=== PATIENT | male | born 1955 | race Caucasian/White ===

== ENCOUNTER → 2016-09-23 | Outpatient (CLI) | payer BC ==
[~2016-09-23] MED LIST: ADVIN10/60 INH
--- NOTE | 2016-09-23 11:59 | DIAGNOSTIC IMAGING REPORT ---
LEFT SHOULDER MIN 2 VIEWS CLINICAL HISTORY: LEFT SHOULDER PAIN pain COMPARISON: None. DISCUSSION: Apparent prior distal left acromioplasty. No acute bony abnormality. No abnormal soft tissue calcifications. There is no evidence for soft tissue swelling. IMPRESSION: Postoperative changes distal clavicle. No acute process. Electronically signed by: Conrado Pearson M.D. 09/23/2016 11:57 AM Dictated Date/Time: 09/23/2016 11:57 AM
== END | disposition home or self-care (01) ==
LOC: C.RDSM 14:19
PROVIDERS: ATTEND Physician Assistant
DX: M25.512 Pain in left shoulder (principal); Z98.890 Other specified postprocedural states

== ENCOUNTER → 2017-06-29 | Outpatient (CLI) | payer BC ==
--- NOTE | 2017-06-29 09:08 | DIAGNOSTIC IMAGING REPORT ---
L LOWER EXT JOINT WITHOUT CLINICAL HISTORY: 61 years-old Male with L KNEE PAIN. Acute left knee pain status post trauma. Pain is most pronounced medially with associated swelling. COMPARISON: None available TECHNIQUE: Multiplanar, multisequence MRI of the left knee was performed without intravenous contrast. FINDINGS: MENISCI: Multidirectional signal involves the body, posterior junction and posterior horn medial meniscus with dominant horizontal undersurface tear component extending to the inferior articular surface nicely seen on the sagittal PD images. There is also nicely seen on images 15 and 16 of series 8. There is mild medial extrusion of the medial meniscus into the adjacent meniscal gutter. No definite displaced fragment identified. There is probable extension of the tear into the posterior horn meniscal root as seen on image 11 of series 5. The lateral meniscus appears sharp in contour and is intact. CRUCIATE LIGAMENTS: The anterior and posterior cruciate ligaments are normal in signal, morphology and course. Minimal mucoid degeneration involves the proximal femoral fibers of the ACL. COLLATERAL LIGAMENTS: The popliteus tendon, biceps femoris tendon, fibular collateral ligament and iliotibial band are intact. There is extensive soft tissue edema about the medial knee both deep and superficial to the MCL. There is a complete tear of the superficial deep and superficial fibers of the MCL from its femoral attachment site with 7 mm retraction, image 17 series 4 and image 16 series 8. EXTENSOR MECHANISM: The quadriceps and patellar tendons are intact. The medial and lateral patellar retinacula are intact. KNEE JOINT: Small to moderate joint effusion. Mild chondromalacia involves the patellofemoral joint with moderate chondromalacia of the mid weightbearing portion of the lateral femoral condyle and posterior weightbearing portion of the medial femoral condyle with areas of mild subchondral cystic change/edema. Mild subchondral cystic change/edema is also seen involving the lateral tibia at the tibiofibular articulation. No intra-articular loose body identified. BONE MARROW: The bone marrow signal is age appropriate. No fracture, or marrow replacing process. SOFT TISSUES: Soft tissue edema as above with mild subcutaneous edema about the medial knee. IMPRESSION: 1. Complete tear of the MCL with minimal retraction of the superficial fibers. Extensive associated edema is noted both superficial and deep to the torn MCL. 2. Complex tear of the medial meniscal body, posterior junction and posterior horn with probable extension into the posterior meniscal root. 3. Tricompartmental chondromalacia as above. 4. No acute fracture identified. 5. Small to moderate joint effusion. The above report was generated using voice recognition software. It may contain grammatical, syntax or spelling errors. Electronically signed by: Herb Oconnor M.D. 06/29/2017 9:06 AM Dictated Date/Time: 06/29/2017 8:51 AM
== END | disposition home or self-care (01) ==
LOC: C.MRI 07:54
PROVIDERS: ATTEND Physician Assistant
DX: S83.412A Sprain of medial collateral ligament of left knee, initial encounter (principal); S83.242A Other tear of medial meniscus, current injury, left knee, initial encounter; X58.XXXA Exposure to other specified factors, initial encounter; M94.262 Chondromalacia, left knee; M25.462 Effusion, left knee

== ENCOUNTER 2021-10-22 10:38 | Inpatient (IN) ==
--- NOTE | 2021-10-22 11:07 | Emergency Department Note ---
Impression & Plan Pneumothorax on right, Multiple rib fractures involving four or more ribs, Syncope, Smokeless tobacco use, Acute chest wall pain ED Provider Note NAME: BECCA GARCIA AGE: 66 SEX: M : 1955 ARRIVES VIA: Walk-In INFORMANT: [Patient][, ] ED PROVIDER(S): [Luis M Cancino MD] Chief Complaint: Chest wall pain, syncope HPI: Patient presented due to concern for right-sided chest wall pain status post fall that occurred 2 days prior was seen in the outpatient setting was told he likely had rib fractures as well as a possible punctured lung. 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 Patient was only out for a brief period of time. Patient states that he probably fell about 5 feet. Patient does not take any blood thinning medications and did not have any pain until yesterday. Patient does describe it as sharp and burning. It is nonradiating located to the right lateral and anterior rib areas. The patient does complain of pain with inspiration is well-developed with palpation and movement. Patient has any fevers or chills. Patient denies any head neck abdominal pelvis or extremity pain. Patient did take 2 Aleve this morning which mildly improved his symptoms. The patient does use chewing tobacco but does not smoke. ROS: See HPI for pertinent positives and negatives. A total of 10 systems were reviewed and otherwise negative. Past medical history: See below Surgical history: See below Social history: See below Physical Exam: GENERAL: NAD, [wearing a mask,] non-toxic. EYE EXAM: Normal conjunctiva. PERRL, no anisocoria and EOM's grossly intact w/o pain. NECK: Supple, no nuchal rigidity, no adenopathy, non-tender. No signs of meningismus. FROM of the neck with good chin to chest and neck extension. No stridor. LUNGS: Clear to auscultation. Normal chest wall mechanics. Chest: Pain to the lower portion of the mid axillary ribs as well as anteriorly without obvious flail chest crepitus or overlying ecchymosis. HEART: NSR, no MRG. ABDOMEN: Abdomen soft, non-tender, normo-active bowel sounds, no masses, no rebound or guarding. BACK: No CVA TTP. SKIN: No rashes and no bruising. UPPER EXTREMITIES: Upper extremities are grossly normal. LOWER EXTREMITIES: Grossly normal, no edema. NEURO EXAM: A&O x3, cranial nerves II-XII grossly intact, normal speech, moves all 4 extremities. Differential diagnoses: Fracture, sprain, strain, hemothorax, pneumothorax, pulmonary contusion dehydration, electrolyte abnormality among others were considered. Course: Patient was seen and evaluated the bedside. Full history physical exam was performed. EKG interpreted by me Normal sinus rhythm, rate of 61, normal intervals, normal axis, no obvious ST elevations. Imaging Studies: See Below Cardiac monitoring: An order was placed for continuous cardiac monitoring. The monitor shows a rate of 65 with sinus rhythm. MDM: Patient was seen due to concern for some right-sided chest wall pain in the setting of recent syncope and fall of the behavior that occurred 2 days prior. The patient has been seen in the outpatient setting was referred here as they were concerned about his x-rays. Blood work was obtained and the patient did receive 4 morphine and 4 of Zofran and IV fluids. The patient does have 7 through 10 rib fractures with small apical pneumothorax. The patient does not tachypneic nor tachycardic and is not hypoxic. Do not believe the patient requires an acute chest tube at this time. Nonrebreather was ordered. I did briefly discuss the patient's care with Dr. Knox at he stated that he was comfortable with keeping him here at the hospital. I subsequently did speak with Lorna Ryder PA-C and the patient was admitted by Dr. Moctezuma. Past Med/Surg History Medical History Asthma Left acoustic neuroma Thoracic aortic aneurysm Surgical History History of orthopedic surgery Hx of hernia repair Hx of sinus surgery Family History Father Myocardial infarction, Onset Age: 58 Brother Cancer brain cancer Social History Smoking Status: Former smoker Tobacco Type: Smokeless Tobacco (Dip or Chew) Number of Years Since Quit: 30; Hx Alcohol Use: Yes Alcohol type: beer Alcohol Intake Frequency: 4 or More x per/Week Alcohol Intake Frequency Comment: 2-3 a day Hx Substance Use: No Preferred Language: Tuvaluan Communication Ability: Effective marital status: Current Living Situation: Spouse Feels Safe at Home: Yes Allergies Allergies Allergy/AdvReac Type Severity Reaction Status Date / Time Penicillins Allergy Unknown . Verified 08/07/21 15:28 Home Meds Home Medications Medication Instructions Recorded Confirmed fluticasone propionate 110 1 puff inhalation BID 08/07/21 10/22/21 mcg/actuation HFA aerosol inhaler (Flovent HFA) Results & Data (ED) Vital Signs Vital Signs - 24 hr 10/22/21 10:44 10/22/21 11:20 10/22/21 11:24 Temperature 36.8 C Temperature Source Temporal Artery Scan Pulse Rate 70 Pulse Rate [Left Apical] 71 Pulse Rhythm [Left Apical] Regular Pulse Strength [Left Apical] Normal Respiratory Rate 20 16 Respiratory Effort / Characteristics Non-Labored Non-Labored Spontaneous Respiratory Depth Normal Normal Respiratory Pattern Regular Blood Pressure 149/88 H Blood Pressure [Right Arm] 143/88 H Blood Pressure Mean 108 Blood Pressure Mean [Right Arm] 106 Blood Pressure Position Sitting Blood Pressure Position [Right Arm] Pulse Oximetry 98 97 Oxygen Delivery Method Room Air Room Air Room Air Sepsis Recent Fever Within 48 Hours No Sepsis New/Unexplained Change in Mental Status No Sepsis Action Taken by Nursing No Action Required 10/22/21 13:00 10/22/21 16:15 Temperature Temperature Source Pulse Rate Pulse Rate [Left Apical] 60 64 Pulse Rhythm [Left Apical] Regular Pulse Strength [Left Apical] Normal Respiratory Rate 18 20 Respiratory Effort / Characteristics Non-Labored Respiratory Depth Normal Respiratory Pattern Regular Blood Pressure Blood Pressure [Right Arm] 116/83 137/83 Blood Pressure Mean Blood Pressure Mean [Right Arm] 94 101 Blood Pressure Position Blood Pressure Position [Right Arm] Lying Pulse Oximetry 97 94 Oxygen Delivery Method Room Air Room Air Sepsis Recent Fever Within 48 Hours Sepsis New/Unexplained Change in Mental Status Sepsis Action Taken by Halfway Medications Current Medication List: was personally reviewed by me Laboratory Data Attestation: I reviewed the patient's lab results. Result diagrams: 10/22/21 11:17 10/22/21 11:17 Lab Results 10/22/21 10/22/21 10/22/21 Range/Units 11:17 11:17 11:17 WBC 7.50 (4.8-10.8) K/ul RBC 5.00 (4.63-6.08) M/uL Hgb 14.5 (14.0-18.0) g/dl Hct 43.2 (40.1-51.0) % MCV 86.4 (80.0-100.0) fL MCH 29.0 (25.0-34.0) pg MCHC 33.6 (32.0-36.0) g/dL RDW Std Deviation 40.3 (36.4-46.3) fL RDW Coeff of Cherelle 12.9 (11.5-14.5) % Plt Count 166 (130-400) K/uL MPV 10.6 (9.4-12.4) fL Immature Gran % (Auto) 0.4 % Neut % (Auto) 83.0 % Lymph % (Auto) 8.7 % [place] % (Auto) 6.7 % Eos % (Auto) 0.9 % Baso % (Auto) 0.3 % Neut # (Auto) 6.23 (1.4-6.5) K/uL Lymph # (Auto) 0.65 L (1.2-3.4) K/uL [place] # (Auto) 0.50 (0.24-0.82) K/uL Eos # (Auto) 0.07 (0-0.50) K/uL Baso # (Auto) 0.02 (0-0.2) K/uL Immature Gran # (Auto) 0.03 H (0.00-0.02) K/uL Sodium 139 (136-145) mmol/L Potassium 4.4 (3.5-5.1) mmol/L Chloride 105 (98-107) mmol/L Carbon Dioxide 29 (21-32) mmol/L Anion Gap 5 (3-11) BUN 19 (6-23) mg/dl Creatinine 0.80 (0.6-1.4) mg/dl Est Cr Clr Drug Dosing 78.1 ml/min Est GFR ( Amer) 109.4 ml/min Est GFR (Non-Af Amer) 94.4 ml/min BUN/Creatinine Ratio 23.8 H (10-20) Glucose 128 H (70-99(Fasting)) mg/dl Calcium 9.4 (8.5-10.1) mg/dl Total Bilirubin 0.8 (0.2-1.0) mg/dl AST 33 (13-39) U/L ALT 43 (7-52) U/L Alkaline Phosphatase 62 (34-104) U/L Troponin I High Sens (0-20) pg/ml Total Protein 6.7 (6.0-8.3) gm/dl Albumin 4.3 (3.4-5.0) gm/dl Globulin 2.4 L (2.5-4.0) gm/dl Albumin/Globulin Ratio 1.8 (0.9-2) TSH 1.434 (0.300-4.500) uIu/ml SARS-CoV-2, RNA, NAAT (NEGATIVE) 10/22/21 10/22/21 Range/Units 11:17 13:30 WBC (4.8-10.8) K/ul RBC (4.63-6.08) M/uL Hgb (14.0-18.0) g/dl Hct (40.1-51.0) % MCV (80.0-100.0) fL MCH (25.0-34.0) pg MCHC (32.0-36.0) g/dL RDW Std Deviation (36.4-46.3) fL RDW Coeff of Cherelle (11.5-14.5) % Plt Count (130-400) K/uL MPV (9.4-12.4) fL Immature Gran % (Auto) % Neut % (Auto) % Lymph % (Auto) % [place] % (Auto) % Eos % (Auto) % Baso % (Auto) % Neut # (Auto) (1.4-6.5) K/uL Lymph # (Auto) (1.2-3.4) K/uL [place] # (Auto) (0.24-0.82) K/uL Eos # (Auto) (0-0.50) K/uL Baso # (Auto) (0-0.2) K/uL Immature Gran # (Auto) (0.00-0.02) K/uL Sodium (136-145) mmol/L Potassium (3.5-5.1) mmol/L Chloride (98-107) mmol/L Carbon Dioxide (21-32) mmol/L Anion Gap (3-11) BUN (6-23) mg/dl Creatinine (0.6-1.4) mg/dl Est Cr Clr Drug Dosing ml/min Est GFR ( Amer) ml/min Est GFR (Non-Af Amer) ml/min BUN/Creatinine Ratio (10-20) Glucose (70-99(Fasting)) mg/dl Calcium (8.5-10.1) mg/dl Total Bilirubin (0.2-1.0) mg/dl AST (13-39) U/L ALT (7-52) U/L Alkaline Phosphatase (34-104) U/L Troponin I High Sens 4.1 (0-20) pg/ml Total Protein (6.0-8.3) gm/dl Albumin (3.4-5.0) gm/dl Globulin (2.5-4.0) gm/dl Albumin/Globulin Ratio (0.9-2) TSH (0.300-4.500) uIu/ml SARS-CoV-2, RNA, NAAT NEGATIVE (NEGATIVE) Administered Medications Discontinued Medications Sodium Chloride (Nss 1000ml) 1,000 mls @ 999 mls/hr IV .Q1H1M AMANUEL Stop: 10/22/21 12:30 Last Infusion: 10/22/21 13:35 Dose: 0 mls/hr Documented By: Admin: 10/22/21 12:24 Dose: 999 mls/hr Documented By: ENRIQUE Sodium Chloride (Nss 1000ml) 1,000 mls @ 999 mls/hr IV .Q1H1M ONE Stop: 10/22/21 12:23 Last Infusion: 10/22/21 13:17 Dose: 0 mls/hr Documented By: Admin: 10/22/21 11:42 Dose: 999 mls/hr Documented By: EUGENE Ioversol (Optiray 320 125ml) 120 ml IV ONCE ONE Stop: 10/22/21 14:19 Last Admin: 10/22/21 14:21 Dose: 120 ml Documented By: SUHA Morphine Sulfate (Morphine Sulfate 4 Mg/Ml 1 Ml Carp\Vial) 4 mg IV NOW STA Stop: 10/22/21 11:24 Last Admin: 10/22/21 11:42 Dose: 4 mg Documented By: EUGENE Ondansetron HCl (Ondansetron Inj 2 Mg/Ml 2 Ml Vial) 4 mg IV NOW STA Stop: 10/22/21 11:24 Last Admin: 10/22/21 11:42 Dose: 4 mg Documented By: NA Imaging Data Radiologist's Impression: Ribs w/Chest X-Ray 10/22/21 11:23 XR ribs RT min 2V w CXR1V CLINICAL HISTORY: pain anterior and lateral s/p fall Monday COMPARISON STUDY: Chest CT 08/07/2021. FINDINGS: Mildly displaced right posterior seventh through 10th rib fractures. S mall right apical pneumothorax with a maximal pleural gap of 8 mm. The heart is normal in size. Left basilar linear densities consistent with subsegmental atelectasis. Otherwise, lungs are clear. No pleural effusions. IMPRESSION: 1. Mildly displaced right posterior seventh through 10th rib fractures. 2. Small right apical pneumothorax. ACT 112: Negative or not required by law. Electronically signed by: Pacheco Jaramillo M.D. 10/22/2021 12:51 PM Chest CTA 10/22/21 13:58 CT ANGIOGRAM OF THE CHEST CLINICAL HISTORY: Syncope. COMPARISON STUDY: Chest CT dated 08/07/2021. Chest x-ray dated 522. TECHNIQUE: Following the IV administration of 120 cc of Optiray 320, CT angiogram of the chest was performed from the upper abdomen to the thoracic inlet utilizing the pulmonary embolus protocol. Images are reviewed in the axial, sagittal, and coronal planes. 3-D MIPS images are created and assessed. IV contrast was administered without complication. A dose lowering technique was utilized adhering to the principles of ALARA. FINDINGS: Thyroid: Imaged portions of the thyroid gland are normal in size and attenuation. Thoracic aorta: There is mild aneurysmal dilatation of the ascending thoracic aorta which measures up to 4.6 cm in diameter. The remainder of the thoracic aorta is normal in caliber, and the arch demonstrates standard 3-vessel anatomy. No dissection is seen. Pulmonary vasculature: The pulmonary trunk is normal in caliber. There are no filling defects identified in main, lobar, or segmental pulmonary branches to suggest pulmonary embolus. Heart: The heart is normal in size and without pericardial effusion. The coronary arteries are densely calcified. Lungs and pleural spaces: There is trace right apical pneumothorax. Trace hemothorax is seen at the right lung base with dependent atelectasis. Atelectasis is also noted at the left lung base. There is no left-sided pneumothorax. The trachea and central airways appear clear Mediastinum: There is no mediastinal lymphadenopathy. Bethanie: Clear. Axillae: There is no axillary lymphadenopathy. Upper abdomen: Partially visualized upper abdominal viscera is within normal limits. Skeletal structures: There are acute right posterior 7th through 10th rib fractures. The 7th and 8th rib fractures are mildly distracted. There is an acute nondisplaced right anterior 6th rib fracture. No lytic or blastic bony lesions are seen. IMPRESSION: 1. There is no evidence of pulmonary embolus in the main, lobar, or segmental pulmonary arteries. 2. There is aneurysmal dilatation of the ascending thoracic aorta which measures up to 4.6 cm in diameter. Nonemergent vascular surgical follow-up is advised. 3. Trace right-sided hemopneumothorax. 4. Right-sided rib fractures as above. 5. Advanced coronary artery calcification. ACT 112: Positive. There are findings on this exam that require communication between the performing entity and the patient following Patient Test Result Information Act ([place] Act 112) guidelines. Electronically signed by: Rah Lutz M.D. 10/22/2021 2:[address] 10/22/21 13:58 CT head/brain wo con CLINICAL HISTORY: 66 years-old Male with syncope. Acute syncope TECHNIQUE: Multiple axial CT images of the head were obtained without contrast. A dose lowering technique was utilized adhering to the principles of ALARA. CT DOSE: 967.71 mGy.cm COMPARISON: Head CT 08/07/2021 FINDINGS: No acute intracranial hemorrhage, midline shift, intracranial mass, hydrocephalus, territorial ischemia or abnormal extra-axial collection. Cerebral vascular calcifications. The calvarium is intact. Mastoid air cells are clear. Partial resection of the ethmoid air cells. Unremarkable soft tissues and orbits. IMPRESSION: No acute intracranial abnormality. ACT 112: Negative or not required by law. The above report was generated using voice recognition software. It may contain grammatical, syntax or spelling errors. Electronically signed by: Janes Oconnor M.D. 10/22/2021 2:34 PM Discharge Plan Visit Data Chief Complaint: Chest/Rib Injury Stated Complaint: SENT BY , BROKEN RIBS AND PUNCTURE LUNG ED Provider: Luis M Cancino Prescriptions Prescriptions: No Action fluticasone propionate [Flovent HFA] 110 mcg/actuation HFA aerosol inhaler 1 puff INHALATION BID
[2021-10-22] MEDS ORDERED: MoRPHine SULFATE 4 MG/ML 1 ML CARP\\VIAL IV STA (11:23)
[2021-10-22] MEDS ORDERED: SODIUM CHLORIDE 0.9% 1000ML 1,000 ML IV ONE (11:23)
[2021-10-22] MEDS ORDERED: ONDANSETRON INJ 2 MG/ML 2 ML VIAL IV STA (11:23)
[2021-10-22] MEDS ORDERED: SODIUM CHLORIDE 0.9% 1000ML 1,000 ML IV SCH ×2 (11:30→16:36)
[2021-10-22 11:36] LABS: Basophils # (auto) 0.02 K/uL (0-0.2); Basophils % (auto) 0.3 %; Eosinophils # (auto) 0.07 K/uL (0-0.50); Eosinophils % (auto) 0.9 %; Hematocrit (blood only) 43.2 % (40.1-51.0); Hemoglobin 14.5 g/dl (14.0-18.0); Immature Granulocytes # (auto) 0.03 K/uL (0.00-0.02); Immature Granulocytes % (auto) 0.4 %; Lymphocytes # (auto) 0.65 K/uL (1.2-3.4); Lymphocytes % (auto) 8.7 %; Mean Corpuscular Hgb Conc 33.6 g/dL (32.0-36.0); Mean Corpuscular Volume 86.4 fL (80.0-100.0); Mean Platelet Volume 10.6 fL (9.4-12.4); Monocytes % (auto) 6.7 %; Neutrophils # (auto) 6.23 K/uL (1.4-6.5); Platelet Count 166 K/uL (130-400); RDW Coefficient of Variation 12.9 % (11.5-14.5); RDW Standard Deviation 40.3 fL (36.4-46.3)
[2021-10-22 11:51] LABS: Albumin Globulin Ratio 1.8 (0.9-2); Albumin Level 4.3 gm/dl (3.4-5.0); BUN Creatinine Ratio 23.8 (10-20); Bilirubin,Total 0.8 mg/dl (0.2-1.0); Calcium 9.4 mg/dl (8.5-10.1); Creatinine Clr Calc Pharmacy 78.1 ml/min; Est GFR (African American) 109.4 ml/min; Est GFR (Non-African American) 94.4 ml/min; Globulin 2.4 gm/dl (2.5-4.0); Potassium 4.4 mmol/L (3.5-5.1); Total Protein 6.7 gm/dl (6.0-8.3)
--- NOTE | 2021-10-22 12:52 | XRay Report ---
XR ribs RT min 2V w CXR1V CLINICAL HISTORY: pain anterior and lateral s/p fall Monday COMPARISON STUDY: Chest CT 08/07/2021. FINDINGS: Mildly displaced right posterior seventh through 10th rib fractures. Small right apical pne umothorax with a maximal pleural gap of 8 mm. The heart is normal in size. Left basilar linear densit ies consistent with subsegmental atelectasis. Otherwise, lungs are clear. No pleural effusions. IMPRESSION: 1. Mildly displaced right posterior seventh through 10th rib fractures. 2. Small right apical pneumothorax. ACT 112: Negative or not required by law. Electronically signed by: Pacheco Jaramillo M.D. 10/22/2021 12:51 PM
--- NOTE | 2021-10-22 13:37 | History & Physical Report ---
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 He believes he was out 2-3 minutes. Denies any pre syncopal sx except sweating but attributes that to 90 degree heat. He does not drink a lot of water and does drink 2-3 beers a day. Presented to PCP office today and found to have mildly displaced R posterior ribs 7-10 along with small apical pneumothorax. Syncope and Collapse sx very possible related to dehydration and heat; however given hx of TAA as well as fatal [place] in father at age 57 requires further investigation obtain ct head, cta chest r/o PE obtain echocardiogram, carotid doppler monitor on tele, pt may need OP zio monitor ekg w/o st changes, will obtain baseline trop give additional 1L of IVF then stop Mildly displaced right posterior seventh through 10th rib fracture Small right apical pneumothorax Supplemental oxygen Consult pulm Pain control, scheduled Tylenol, as needed Percocet Lidocaine patch Gabapentin ordered for AWSS protocol may also assist in pain management Alcohol abuse pt drinks 2-3 beers a day per tends to be more than this, she is concerned for possible with drawal if has to be hosp >1-2 days awss protocol, prn IV ativan Gabapentin taper Asthma no acute exac continue flovent DVT ppx: SCDS given recent fall, pneumo Dispo: PCU FULL CODE PCP: ARIEL Vargas Pt was seen and examined in collaboration with Dr. 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 Her contact number is [phone] History of Present Illness Chief Complaint: Fell and LOC 2 days ago. Primary Care Provider: ARIEL Taylor This is a 66 yr old M who has a significant PMH of asthma, thoracic aortic aneurysm, left acoustic neuroma who comes to ER at referral of PCP due to fall, loss of consciousness that occurred 2 days ago with subsequent right-sided posterior rib fractures and pneumothorax. He fell off a hay wagon on Monday. His was driving and he was on the back. It was very hot out and he passed out and had LOC. He fell off of [employer] onto this right side. It was approx 5 ft. He doesn't remember hitting the ground. stopped tractor and found him flat on his back with his eyes open and breathing. She went and grabbed a gator to pick him up and when she came back he was already sitting up. He thinks he was out about 2-3minutes. He was aware of events before and after the syncopal episode. He denies loss of bowel and bladder at the time. He denies any prodromal symptoms of lightheadedness, dizziness, chest pain, palpitations, nausea or sweating. He states it was very hot out that day and he was doing a lot of sweating but denies any atiya diaphoresis. He developed R sided chest pain yesterday. He opted to see PCP today. An xray was performed which showed multiple rib fxs wih concern for pneumothorax. He also complains of R lateral and posterior thorax pain. Pain is worse with movement, feels like a spasm, comes and goes with movement and appears to have worsened overnight. He denies f/c/s, dizziness, lightheaded, chest pain, sob, n/v/d, abd pain, change in bowel or urinary habit. He denies prior hx of LOC. He denies prior hx of heart disease. His father passed of a fatal [place] at age 58. He recenly lost his brother to brain cancer at age 68. Allergies Allergy/AdvReac Type Severity Reaction Status Date / Time Penicillins Allergy Unknown . Verified 08/07/21 15:28 Home Medications Medication Instructions Recorded Confirmed Type fluticasone propionate 110 1 puff inhalation BID 08/07/21 10/22/21 History mcg/actuation HFA aerosol inhaler (Flovent HFA) Past Med/Surg History Medical History (Updated 10/22/21 @ 14:18 by Lorna Ryder PA-C) Asthma Left acoustic neuroma Thoracic aortic aneurysm Surgical History (Updated 10/22/21 @ 14:18 by Lorna Ryder PA-C) History of orthopedic surgery Hx of hernia repair Hx of sinus surgery Family History Father Myocardial infarction, Onset Age: 58 Brother Cancer brain cancer Social History Smoking Status: Former smoker Tobacco Type: Smokeless Tobacco (Dip or Chew) Number of Years Since Quit: 30; Hx Alcohol Use: Yes Alcohol type: beer Alcohol Intake Frequency: 4 or More x per/Week Alcohol Intake Frequency Comment: 2-3 a day Hx Substance Use: No Preferred Language: Guinean Communication Ability: Effective marital status: Current Living Situation: Spouse Feels Safe at Home: Yes Review of Systems Review of Systems: All systems reviewed & are unremarkable except as noted in HPI & below Physical Exam Physical Exam: Please refer to Dr. Mocteuzma addendum for physical exam findings. Results & Data Results & Data ([facility]) Vital Signs (Past 12 Hours) Vital Signs Temp Pulse Pulse Resp BP BP Pulse Ox 10/22/21 13:00 60 18 116/83 97 10/22/21 11:24 10/22/21 11:20 71 16 143/88 H 97 10/22/21 10:44 36.8 C 70 20 149/88 H 98 O2 Del Method 10/22/21 13:00 Room Air 10/22/21 11:24 Room Air 10/22/21 11:20 Room Air 10/22/21 10:44 Room Air Diagnostic Findings Ribs w/Chest X-Ray 10/22/21 11:23 XR ribs RT min 2V w CXR1V CLINICAL HISTORY: pain anterior and lateral s/p fall Monday COMPARISON STUDY: Chest CT 08/07/2021. FINDINGS: Mildly displaced right posterior seventh through 10th rib fractures. Small right apical pneumothorax with a maximal pleural gap of 8 mm. The heart is normal in size. Left basilar linear densities consistent with subsegmental atelectasis. Otherwise, lungs are clear. No pleural effusions. IMPRESSION: 1. Mildly displaced right posterior seventh through 10th rib fractures. 2. Small right apical pneumothorax. ACT 112: Negative or not required by law. Electronically signed by: Pacheco Jaramillo M.D. 10/22/2021 12:51 PM Medications Administered Medication List Discontinued Medications Sodium Chloride (Nss 1000ml) 1,000 mls @ 999 mls/hr IV .Q1H1M AMANUEL Stop: 10/22/21 12:30 Last Infusion: 10/22/21 13:35 Dose: 0 mls/hr Documented By: Admin: 10/22/21 12:24 Dose: 999 mls/hr Documented By: AP Sodium Chloride (Nss 1000ml) 1,000 mls @ 999 mls/hr IV .Q1H1M ONE Stop: 10/22/21 12:23 Last Infusion: 10/22/21 13:17 Dose: 0 mls/hr Documented By: Admin: 10/22/21 11:42 Dose: 999 mls/hr Documented By: NA Morphine Sulfate (Morphine Sulfate 4 Mg/Ml 1 Ml Carp\Vial) 4 mg IV NOW STA Stop: 10/22/21 11:24 Last Admin: 10/22/21 11:42 Dose: 4 mg Documented By: NA Ondansetron HCl (Ondansetron Inj 2 Mg/Ml 2 Ml Vial) 4 mg IV NOW STA Stop: 10/22/21 11:24 Last Admin: 10/22/21 11:42 Dose: 4 mg Documented By: EUGENE ECG Rate (beats per minute): 61 Rhythm: normal sinus COVID-19 Results Results COVID-19 Adm Lab Results: RBC 5.00 M/uL (4.63-6.08) 10/22/21 WBC 7.50 K/ul (4.8-10.8) 10/22/21 Hgb 14.5 g/dl (14.0-18.0) 10/22/21 Hct 43.2 % (40.1-51.0) 10/22/21 Plt Count 166 K/uL (130-400) 10/22/21 Neutrophils (%) (Auto) 83.0 % 10/22/21 Lymphocytes (%) (Auto) 8.7 % 10/22/21 Monocytes # (Auto) 0.50 K/uL (0.24-0.82) 10/22/21 Eosinophils # (Auto) 0.07 K/uL (0-0.50) 10/22/21 Immature Granulocyte % (Auto) 0.4 % 10/22/21 Neutrophils # (Auto) 6.23 K/uL (1.4-6.5) 10/22/21 Lymphocytes # (Auto) 0.65 K/uL (1.2-3.4) L 10/22/21 Monocytes # (Auto) 0.50 K/uL (0.24-0.82) 10/22/21 Eosinophils # (Auto) 0.07 K/uL (0-0.50) 10/22/21 Basophils # (Auto) 0.02 K/uL (0-0.2) 10/22/21 Immature Granulocyte # (Auto) 0.03 K/uL (0.00-0.02) H 10/22 Na 139 mmol/L (136-145) 10/22/21 K 4.4 mmol/L (3.5-5.1) 10/22/21 Cl 105 mmol/L (98-107) 10/22/21 CO2 29 mmol/L (21-32) 10/22/21 Anion Gap 5 (3-11) 10/22/21 BUN 19 mg/dl (6-23) 10/22/21 Creatinine 0.80 mg/dl (0.6-1.4) 10/22/21 BUN/Creatinine Ratio 23.8 (10-20) H 10/22/21 Glucose Level 128 mg/dl (70-99(Fasting)) H 10/22/21 Ca 9.4 mg/dl (8.5-10.1) 10/22/21 Total Bilirubin 0.8 mg/dl (0.2-1.0) 10/22/21 AST/SGOT 33 U/L (13-39) 10/22/21 ALT/SGPT 43 U/L (7-52) 10/22/21 Alkaline Phosphatase 62 U/L (34-104) 10/22/21 Total Protein 6.7 gm/dl (6.0-8.3) 10/22/21 Albumin 4.3 gm/dl (3.4-5.0) 10/22/21 Globulin 2.4 gm/dl (2.5-4.0) L 10/22/21 Albumin/Globulin Ratio 1.8 (0.9-2) 10/22/21 SARS-CoV-2, RNA, NAAT NEGATIVE (NEGATIVE) 10/22/21 Code Status & VTE Plan Code Status FULL CODE Supervising Physician Co-Signing Physician Notes 66-year-old man with PMH of thoracic aortic aneurysm, mild persistent asthma without complication, left acoustic neuroma presented to the ED 10/22 upon referral from PCP visit due to 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 Patient was found to have right-sided posterior rib fractures and pneumothorax in the ED. Per patient, he had loss of consciousness and he fell off of [employer], reports feeling very hot [patient was out in the sun at the same time]/sweaty/weakness but no nausea prior to fall, regained consciousness in maybe 1 to 2 minutes per patient, denies any postevent confusion or loss of bowel and bladder movements involuntarily. Patient reports falling on his back x Rt side and has been having his lower right back worsening associated with the spasms since then. Patient also complains of right chest pain which is stable in nature since then. OP Chart review: XR L and T spine w/ no acute findings. XR ribs w/ tiny Rt apical PTX and Rt post 7, 8 and 10th ribs fracture. Admitting CXR w/ 7-10 rib fracture and small right apical pneumothorax. Patient denies any fever or chest pain or shortness of breath or acute changes in his bowel or bladder habit. Patient reports having aortic aneurysm history, brother dying of brain cancer at age 68 and father dying of heart attack at age 58. For syncope and collapse, echo, CT head, CTA chest, carotid Doppler, telemetry monitoring, may need outpatient Zio patch monitor. For right posterior lower rib fracture with small apical pneumothorax on the right, monitor over telemetry, consult pulm, pain control. conservative Mx. Patient does drink alcohol on a regular basis, KJ S protocol. Upon examination: GENERAL: Alert and oriented x3. NAD, on RA. HEENT: No pallor, no icterus. Pupils equal, round and reactive to light. Oral mucosa moist. NECK: No JVD, no neck masses. HEART: S1 and S2 heard. Regular rate and rhythm. No murmur, no gallop. RESPIRATORY SYSTEM: Normal AP diameter. No accessory muscle use. No wheezing, no crackles. ABDOMEN: Soft, bowel sounds present, nontender, no distention. CENTRAL NERVOUS SYSTEM: No facial droop. Speech is clear. Obeys simple commands. Moves extremities. EXTREMITIES: No edema, no erythema seen. Tender Rt mid and lower back, no bruise/erythema/swelling noted. I have seen and examined the patient and have discussed the case with the provider above. I agree with the assessment and plan as stated. Chronic
[2021-10-22] MEDS ORDERED: OPTIRAY 320 125ml IV ONE (14:18)
--- NOTE | 2021-10-22 14:36 | CT Scan Report ---
CT head/brain wo con CLINICAL HISTORY: 66 years-old Male with syncope. Acute syncope TECHNIQUE: Multiple axial CT images of the head were obtained without contrast. A dose lowering tech nique was utilized adhering to the principles of ALARA. CT DOSE: 967.71 mGy.cm COMPARISON: Head CT 08/07/2021 FINDINGS: No acute intracranial hemorrhage, midline shift, intracranial mass, hydrocephalus, territorial ischem ia or abnormal extra-axial collection. Cerebral vascular calcifications. The calvarium is intact. Mastoid air cells are clear. Partial resection of the ethmoid air cells. Un remarkable soft tissues and orbits. IMPRESSION: No acute intracranial abnormality. ACT 112: Negative or not required by law. The above report was generated using voice recognition software. It may contain grammatical, syntax o r spelling errors. Electronically signed by: Janes Oconnor M.D. 10/22/2021 2:34 PM
--- NOTE | 2021-10-22 14:41 | CT Scan Report ---
CT ANGIOGRAM OF THE CHEST CLINICAL HISTORY: Syncope. COMPARISON STUDY: Chest CT dated 08/07/2021. Chest x-ray dated 522. TECHNIQUE: Following the IV administration of 120 cc of Optiray 320, CT angiogram of the chest was pe rformed from the upper abdomen to the thoracic inlet utilizing the pulmonary embolus protocol. Images are reviewed in the axial, sagittal, and coronal planes. 3-D MIPS images are created and assessed. I V contrast was administered without complication. A dose lowering technique was utilized adhering to the principles of ALARA. FINDINGS: Thyroid: Imaged portions of the thyroid gland are normal in size and attenuation. Thoracic aorta: There is mild aneurysmal dilatation of the ascending thoracic aorta which measures up to 4.6 cm in diameter. The remainder of the thoracic aorta is normal in caliber, and the arch demons trates standard 3-vessel anatomy. No dissection is seen. Pulmonary vasculature: The pulmonary trunk is normal in caliber. There are no filling defects identif ied in main, lobar, or segmental pulmonary branches to suggest pulmonary embolus. Heart: The heart is normal in size and without pericardial effusion. The coronary arteries are densel y calcified. Lungs and pleural spaces: There is trace right apical pneumothorax. Trace hemothorax is seen at the r ight lung base with dependent atelectasis. Atelectasis is also noted at the left lung base. There is no left-sided pneumothorax. The trachea and central airways appear clear Mediastinum: There is no mediastinal lymphadenopathy. Bethanie: Clear. Axillae: There is no axillary lymphadenopathy. Upper abdomen: Partially visualized upper abdominal viscera is within normal limits. Skeletal structures: There are acute right posterior 7th through 10th rib fractures. The 7th and 8th rib fractures are mildly distracted. There is an acute nondisplaced right anterior 6th rib fracture. No lytic or blastic bony lesions are seen. IMPRESSION: 1. There is no evidence of pulmonary embolus in the main, lobar, or segmental pulmonary arteries. 2. There is aneurysmal dilatation of the ascending thoracic aorta which measures up to 4.6 cm in diam eter. Nonemergent vascular surgical follow-up is advised. 3. Trace right-sided hemopneumothorax. 4. Right-sided rib fractures as above. 5. Advanced coronary artery calcification. ACT 112: Positive. There are findings on this exam that require communication between the performing entity and the patient following Patient Test Result Information Act ([place] Act 112) guidelines. Electronically signed by: Rah Lutz M.D. 10/22/2021 2:39 PM
--- NOTE | 2021-10-22 15:22 | Electrocardiogram Report ---
Test Reason : Blood Pressure : / mmHG Vent. Rate : 061 BPM Atrial Rate : 061 BPM P-R Int : 128 ms QRS Dur : 076 ms QT Int : 416 ms P-R-T Axes : 073 -12 049 degrees QTc Int : 418 ms Normal sinus rhythm Possible Left atrial enlargement Borderline ECG When compared with ECG of 12-MAY-2011 10:12, Nonspecific T wave abnormality now evident in Anterior leads Confirmed by Gavin Yung ([id number]) on 10/22/2021 3:22:33 PM Referred By: NO PCP Confirmed By:Renny Yung
[2021-10-22] MEDS ORDERED: LORazepam 1 MG TAB PO PRN (16:36)
[2021-10-22] MEDS ORDERED: ALUMINUM/MAGNESIUM SUSP 30 ML UDC PO PRN (16:36)
[2021-10-22] MEDS ORDERED: POLYETHYLENE (MIRALAX) 17 GM PACK PO PRN (16:36)
[2021-10-22] MEDS ORDERED: ONDANSETRON INJ 2 MG/ML 2 ML VIAL IV PRN (16:36)
[2021-10-22] MEDS ORDERED: GABAPENTIN 1200MG ALCOHOL WITHDRAWAL LOAD PO STA (16:36)
[2021-10-22] MEDS ORDERED: ACETAMINOPHEN 325 MG TAB PO PRN (16:36)
[2021-10-22] MEDS ORDERED: MAGNESIUM HYDROXIDE SUSP 30 ML UDC PO PRN (16:36)
[2021-10-22] MEDS ORDERED: oxyCODONE HCL IR 5 MG TAB (IMMEDIATE RELEASE) PO PRN ×2 (16:36)
--- NOTE | 2021-10-22 16:44 | XCELERA ---
[id number]
[2021-10-22] MEDS ORDERED: GABAPENTIN 600 MG TAB PO ONE (16:45)
[2021-10-22] MEDS ORDERED: ALBUT/IPRATROP 3MG/0.5MG NEB 3 ML VIAL NEB PRN (16:53)
--- NOTE | 2021-10-22 16:55 | Pulmonary Consultation ---
Date of Consultation October 22, 2021 Assessment & Plan (1) Pneumothorax on right: Trace right hydropneumothorax. Continue to monitor closely. Obtain chest x-ray tomorrow morning. No indication for pleural procedure at this time given the small size of the effusion and pneumothorax. (2) Multiple rib fractures involving four or more ribs: Multiple rib fractures noted on chest x-ray from seventh and 10th ribs. Pain control per primary team. (3) Asthma: Monitor for asthma exacerbation. We will start DuoNebs as needed. Continue Flovent. History of Present Illness Reason for Consultation: Right-sided hemopneumothorax Attending Physician: Yonatan Moctezuma MD History of Present Illness 66-year-old male with a past medical history of asthma who presented to the ER due to a fall and loss of consciousness 2 days ago. He was having right-sided pain. He underwent a chest x-ray which demonstrated a small right apical pneumothorax. CT chest demonstrated a small rib fracture and a right-sided tiny hemopneumothorax. Pulmonary was consulted to assist in management. Patient is not on any antiplatelet agents or anticoagulants. Hemoglobin is stable. Oxygenation is 94% on room air. Allergies Allergy/AdvReac Type Severity Reaction Status Date / Time Penicillins Allergy Unknown . Verified 08/07/21 15:28 Home Medications Medication Instructions Recorded Confirmed Type fluticasone propionate 110 1 puff inhalation BID 08/07/21 10/22/21 History mcg/actuation HFA aerosol inhaler (Flovent HFA) Patient History Medical History Asthma Left acoustic neuroma Thoracic aortic aneurysm Surgical History History of orthopedic surgery Hx of hernia repair Hx of sinus surgery Family History Father Myocardial infarction, Onset Age: 58 Brother Cancer brain cancer Social History Smoking Status: Former smoker Tobacco Type: Smokeless Tobacco (Dip or Chew) Smoking End Date: quit 30 years ago; Number of Years Since Quit: 30; Do You Dip or Chew Tobacco: Yes; Hx Alcohol Use: Yes Alcohol type: beer Alcohol Intake Frequency: 4 or More x per/Week Alcohol Intake Frequency Comment: 2-3 a day Hx Substance Use: No Preferred Language: Khmer Communication Ability: Effective 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 Patient is in no apparent distress. Patient is well-developed. Eyes: Pupils are equal round and reactive to light. Conjunctivae are normal. Anicteric sclera. Ears nose, mouth and throat: Mallampati class 1. Normal posterior oropharynx. Uvula is midline. Neck: Trachea is midline. Visual inspection is normal. Respiratory: Clear to auscultation bilaterally. No use of accessory muscles. No significant clubbing noted. Cardiovascular: Regular rate and rhythm. No murmurs. No edema. Gastrointestinal: Normal bowel sounds, soft, nontender and nondistended. No hepatosplenomegaly noted. Musculoskeletal: Pain to palpation along the right rib cage Skin: No rashes, warm dry and intact. Neurologic: No obvious focal neurological deficits seen. Psychiatric: Alert and oriented x3 with a euthymic affect. Results & Data Results & Data ([facility]) Vital Signs (Past 12 Hours) Vital Signs Temp Pulse Pulse Resp BP BP Pulse Ox 10/22/21 16:15 64 20 137/83 94 10/22/21 13:00 60 18 116/83 97 10/22/21 11:24 10/22/21 11:20 71 16 143/88 H 97 10/22/21 10:44 36.8 C 70 20 149/88 H 98 O2 Del Method 10/22/21 16:15 Room Air 10/22/21 13:00 Room Air 10/22/21 11:24 Room Air 10/22/21 11:20 Room Air 10/22/21 10:44 Room Air PG Care Time/CCT Total # of Minutes Spent Total Time Spent with Patient: Total time spent is greater than 50% in coordination of care (as documented) at patient's floor/unit and/or counseling patient: Coding Level of Care Code 52758 Initial Inpt Care Lvl 2 Diagnoses Pneumothorax on right J93.9 Multiple rib fractures involving four or more ribs S22.49XA Asthma J45.909
--- NOTE | 2021-10-22 17:02 | Ultrasound Report ---
BILATERAL CAROTID DOPPLER STUDY HISTORY: syncope COMPARISON: None. TECHNIQUE: Real-time, grayscale, and color Doppler sonography of the carotid arteries was performed. Imaging reviewed in the transverse and longitudinal planes. All measurements were calculated based on NASCET criteria. FINDINGS: Antegrade flow is seen in the bilateral vertebral arteries. Mild calcified plaque within the bilateral carotid bifurcations. The peak systolic velocity within the right ICA is 60 cm/s. The right systolic ratio is 0.6. The peak systolic velocity within the left ICA is 56 cm/s. The left systolic ratio is 0.6. IMPRESSION: No hemodynamically significant stenosis seen within the carotid arteries. ACT 112: Negative or not required by law. Electronically signed by: Pacheco Jaramillo M.D. 10/22/2021 5:01 PM
[2021-10-22] MEDS: ACETAMINOPHEN 500 MG TAB PO SCH ×3 (17:19→19:38)
[2021-10-22] MEDS: LIDOCAINE 5% 1 PATCH TD SCH (17:20)
[2021-10-22 17:30] LABS: Partial Thromboplastin Time 26.8 Seconds (21.0-31.0); Prothrombin Time 10.8 Seconds (9.0-12.0)
[2021-10-22] MEDS: FLUTICASONE HFA 110MCG INHALER INH SCH ×2 (19:38→20:02)
[2021-10-22] MEDS: GABAPENTIN 600 MG TAB PO SCH (22:32)
[2021-10-23] MEDS: GABAPENTIN 600 MG TAB PO SCH ×3 (04:25→20:58)
[2021-10-23] MEDS: LIDOCAINE 5% 1 PATCH TD SCH ×2 (07:34→20:14)
[2021-10-23] MEDS: ACETAMINOPHEN 500 MG TAB PO SCH ×4 (07:36→20:12)
[2021-10-23] MEDS: FLUTICASONE HFA 110MCG INHALER INH SCH ×2 (07:37→20:13)
[2021-10-23 08:07] LABS: Albumin Globulin Ratio 1.8 (0.9-2); Albumin Level 3.5 gm/dl (3.4-5.0); BUN Creatinine Ratio 20.3 (10-20); Bilirubin,Total 0.5 mg/dl (0.2-1.0); Calcium 8.2 mg/dl (8.5-10.1); Creatinine Clr Calc Pharmacy 79.1 ml/min; Est GFR (Non-African American) 94.9 ml/min; Globulin 1.9 gm/dl (2.5-4.0); Magnesium 2.1 mg/dl (1.7-2.4); Potassium 4.2 mmol/L (3.5-5.1); Total Protein 5.4 gm/dl (6.0-8.3)
[2021-10-23 08:20] LABS: Estimated Average Glucose 103 mg/dl; Hemoglobin A1C 5.2 % (4.5-5.6)
[2021-10-23 08:32] LABS: Hematocrit (blood only) 39.1 % (40.1-51.0); Hemoglobin 13.1 g/dl (14.0-18.0); Mean Corpuscular Hgb Conc 33.5 g/dL (32.0-36.0); Mean Corpuscular Volume 86.7 fL (80.0-100.0); Mean Platelet Volume 10.9 fL (9.4-12.4); Platelet Count 140 K/uL (130-400); Red Blood Count 4.51 M/uL (4.63-6.08); White Blood Count 5.77 K/ul (4.8-10.8)
[2021-10-23 08:33] LABS: Basophils # (auto) 0.04 K/uL (0-0.2); Basophils % (auto) 0.7 %; Eosinophils # (auto) 0.18 K/uL (0-0.50); Eosinophils % (auto) 3.1 %; Immature Granulocytes # (auto) 0.02 K/uL (0.00-0.02); Immature Granulocytes % (auto) 0.3 %; Lymphocytes # (auto) 0.92 K/uL (1.2-3.4); Lymphocytes % (auto) 15.9 %; Monocytes # (auto) 0.43 K/uL (0.24-0.82); Monocytes % (auto) 7.5 %; Neutrophils # (auto) 4.18 K/uL (1.4-6.5); Neutrophils % (auto) 72.5 %; RBC Morphology Unremarkable
--- NOTE | 2021-10-23 09:54 | XRay Report ---
XR chest 2V PA/lateral HISTORY: Follow up right pneumothorax. COMPARISON: Chest and right rib series 10/22/2021. FINDINGS: The tiny right pneumothorax has almost completely resolved in the interval. There is a trac e right pleural effusions. Right basilar linear densities consistent with subsegmental atelectasis. R ight posterior seventh through 10th rib fractures are again noted. There are few left basilar linear densities consistent with subsegmental atelectasis. The heart is normal in size. IMPRESSION: 1. Near-complete resolution of the tiny right pneumothorax. 2. Right posterior seventh through 10th rib fractures are again noted. 3. Interval development of a small right pleural effusion. 4. Bibasilar linear densities likely representing subsegmental atelectasis. ACT 112: Negative or not required by law. Electronically signed by: Pacheco Jaramillo M.D. 10/23/2021 9:53 AM
--- NOTE | 2021-10-23 10:02 | Cardiology Consultation ---
Date of Consultation October 23, 2021 Assessment & Plan (1) Syncope and collapse: (2) Pneumothorax on right: (3) Multiple rib fractures involving four or more ribs: (4) Thoracic ascending aortic aneurysm: (1) Syncope and collapse: I think the patient's syncopal episode is likely explained on the basis of him having performed a high degree of physical labor in the humidity without having staying hydrated. No concerning findings on telemetry at present. Echocardiogram reassuring. EKG without acute changes. Recommend a screening 2- week Zio monitor for completeness at time of discharge. (2) Pneumothorax on right: -Per radiology report chest x-ray this morning this appears improved. (3) Multiple rib fractures involving four or more ribs: -Pain Adequately controlled. -Continue lidocaine patch Incentive spirometry (4) Thoracic ascending aortic aneurysm: The patient had a non syncopal fall from a roof in Jul, 2021 and had extensive work-up at that time including a CT of the chest that revealed maximum dimension of the ascending thoracic aorta of 4.1 cm at that time. CT performed last evening reveals a maximum ascending aorta dimension at the level of the pulmonary artery bifurcation of 4.6 cm. This of course is considered to be a significant interval change and if accurate, accounting for potential differences in imaging technique, would warrant nonurgent CT surgery consultation for consideration of elective repair. I have contacted the radiologist on-call, with request to review the films together for another comparison. Outpatient follow-up to this report will be arranged. Patient noted to have incidental findings of significant coronary artery calcification. He does not have a history of dyslipidemia. Stress test negative for ischemia at a high level of exercise in 2018. We will follow-up with regards to lipid levels and need for statin therapy as an outpatient. From a syncope and aorta standpoint, I do not believe the patient needs to remain in the hospital. History of Present Illness Attending Physician: Debbie Gonzalez MD History of Present Illness Mauro Acevedo is a 66 year old male seen in cardiology consultation for the evaluation of syncope, history of ascending thoracic aortic aneurysm. 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 She was driving the tractor, and he was in the back standing on a wagon baling hay. Patient was observed by spouse to have fallen off the wagon to the ground, a distance of 5 feet, and he was unresponsive. She stopped the tractor and went to get an ATV and when she came back just a few moments later, he was awake. She brought him to the house, by the time they arrived his mentation had normalized. He drank 2 bottles of water and felt better. He ultimately presented to primary care yesterday and was found to have right rib fractures, and a small pneumothorax prompting emergency room presentation. At present he is feeling well, and is eager for discharge. Telemetry reveals stable sinus rhythm in the 50s to 60s. Patient had most recently been seen as an outpatient by the undersigned in August, at that time complaining of generalized weakness and easy fatigability. Poor R wave progression had been noted in the anterior precordial leads at that time. He underwent an exercise stress echocardiogram in August,, achieving above average workload of 12 METS on a [place] protocol with no EKG or echocardiographic evidence of inducible ischemia. Resting LVEF was 55 to 59% with appropriate augmentation postexercise. The aortic valve was noted to be trileaflet in morphology with mild aortic valve sclerosis without stenosis and no significant aortic regurgitation. The proximal ascending thoracic aorta is minimally dilated at 4.2 cm within the [id number] of echocardiogram at that time having been measured to be 4.1 cm in 2016. Family History: Father suddenly due to presumed myocardial infarction at age 58. Allergies Allergy/AdvReac Type Severity Reaction Status Date / Time Penicillins Allergy Unknown . Verified 08/07/21 15:28 Home Medications Medication Instructions Recorded Confirmed Type fluticasone propionate 110 1 puff inhalation BID 08/07/21 10/22/21 History mcg/actuation HFA aerosol inhaler (Flovent HFA) Patient History Medical History Asthma Left acoustic neuroma Thoracic aortic aneurysm Surgical History History of orthopedic surgery Hx of hernia repair Hx of sinus surgery Family History Father Myocardial infarction, Onset Age: 58 Brother Cancer brain cancer Social History Smoking Status: Former smoker Tobacco Type: Smokeless Tobacco (Dip or Chew) Smoking End Date: quit 30 years ago; Number of Years Since Quit: 30; Do You Dip or Chew Tobacco: Yes; Hx Alcohol Use: Yes Alcohol type: beer Alcohol Intake Frequency: 4 or More x per/Week Alcohol Intake Frequency Comment: 2-3 a day Hx Substance Use: No Preferred Language: Arabic Communication Ability: Effective 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 Beliefs That Will Affect Care: None marital status: Current Living Situation: Spouse Current Living Situation Comment: Lives at home with Other Information That Helps Us Care for You: No Feels Safe at Home: Yes Safety Concerns: Feels Safe At This Time Review of Systems Review of Systems: All systems reviewed & are unremarkable except as noted in HPI & below Physical Exam Constitutional: WD/WN, vitals as above Respiratory: Auscultation: + diminished lung sounds (Decreased breath sound at the base the right side); no crackles and no rales Cardiovascular: RRR, no murmur, no edema Gastrointestinal (Abdomen): normal bowel sounds, soft, nontender, no hepatosplenomegaly Neurologic: PERRL, EOMI, accommodation nl, no face palsy, no dysarthria Results & Data ([facility]) Vital Signs (Past 12 Hours) Vital Signs Temp Pulse Pulse Resp BP Pulse Ox Pulse Ox 10/23/21 08:12 36.5 C 63 17 121/83 94 10/23/21 07:22 51 L 10/22/21 22:19 89 10/23/21 04:10 36 C L 55 L 16 110/69 100 10/22/21 23:25 36 C L 61 16 121/77 99 10/23/21 00:00 99 O2 Del Method O2 Del Method O2 Flow Rate O2 Flow Rate 10/23/21 08:12 Room Air 10/23/21 07:22 10/22/21 22:19 10/23/21 04:10 Non-rebreather 15 10/22/21 23:25 Non-rebreather 15 10/23/21 00:00 Non-rebreather 15 Laboratory Results Cardiac Enzymes 10/22/21 10/22/21 10/23/21 Range/Units 11:17 11:17 06:57 AST 33 23 (13-39) U/L Troponin I High Sens 4.1 (0-20) pg/ml Coagulation 10/22/21 Range/Units 17:03 PT 10.8 (9.0-12.0) Seconds APTT 26.8 (21.0-31.0) Seconds CBC 10/22/21 10/23/21 Range/Units 11:17 06:57 WBC 7.50 5.77 (4.8-10.8) K/ul RBC 5.00 4.51 L (4.63-6.08) M/uL Hgb 14.5 13.1 L (14.0-18.0) g/dl Hct 43.2 39.1 L (40.1-51.0) % Plt Count 166 140 (130-400) K/uL Neut # (Auto) 6.23 4.18 (1.4-6.5) K/uL Lymph # (Auto) 0.65 L 0.92 L (1.2-3.4) K/uL [place] # (Auto) 0.50 0.43 (0.24-0.82) K/uL Eos # (Auto) 0.07 0.18 (0-0.50) K/uL Baso # (Auto) 0.02 0.04 (0-0.2) K/uL Comprehensive Metabolic Panel 10/22/21 10/23/21 Range/Units 11:17 06:57 Sodium 139 140 (136-145) mmol/L Potassium 4.4 4.2 (3.5-5.1) mmol/L Chloride 105 109 H (98-107) mmol/L Carbon Dioxide 29 28 (21-32) mmol/L BUN 19 16 (6-23) mg/dl Creatinine 0.80 0.79 (0.6-1.4) mg/dl Glucose 128 H 97 (70-99(Fasting)) mg/dl Calcium 9.4 8.2 L (8.5-10.1) mg/dl AST 33 23 (13-39) U/L ALT 43 32 (7-52) U/L Alkaline Phosphatase 62 50 (34-104) U/L Total Protein 6.7 5.4 L (6.0-8.3) gm/dl Albumin 4.3 3.5 (3.4-5.0) gm/dl Diagnostic Findings EKG performed 10/22/2021 reveals normal sinus rhythm at 61 bpm, possible left atrial lodgment, nonspecific T wave flattening in the anterior precordial leads. Compared to the previous tracing performed as an outpatient August,, previously noted poor R wave progression has improved. Nonspecific T wave abnormality in V2 unchanged, nonspecific T wave abnormality in lead V3 still more pronounced. Carotid duplex, 10/22/2021, no hemodynamically significant stenosis. CT angiogram of the chest 10/22/2021: No evidence of pulmonary embolism Radiology report describes aneurysmal dilatation ascending aorta which measures 4.6 cm maximum dimension at the level of the pulmonary artery bifurcation Trace right-sided hemopneumothorax Coronary artery calcification Acute right posterior seventh through 10th rib fractures Nondisplaced right anterior sixth rib fracture Echocardiogram performed 10/22/2021, left ventricular systolic function normal LVEF 60-65%, normal myocardial thickness
--- NOTE | 2021-10-23 14:30 | Pulmonology Progress Note ---
Date of Service October 23, 2021 Assessment & Plan (1) Pneumothorax on right: Plan: Minimal apical pneumothorax noted on chest x-ray from this morning. Small right pleural effusion likely hemothorax. This should reabsorb over the next 2 to 3 weeks. Recommend a repeat chest x-ray in 4 to 5 days to ensure stability. Follow-up can be with his PCP. If there are pulmonary questions, I would be more than happy to see him in the pulmonary clinic. Cardiology notes reviewed. Recommend ZIO monitor for 2 weeks. Stable for discharge home. Discussed with bedside RN. Pio text sent to hospitalist. (2) Multiple rib fractures involving four or more ribs: Plan: Multiple rib fractures noted on chest x-ray from seventh and 10th ribs. Pain control per primary team. (3) Asthma: Plan: No signs of exacerbation. Continue Flovent. Continue incentive spirometry. Admission and Anticipated Discharge Date Admission Date: October 22, 2021 Subjective Patient seen and examined. He is eager to go home today. Walking around his room on room air without any issue. Continues to have chest pain but is controlled with oral medications along the right chest wall. Review of Systems Review of Systems: All systems reviewed & are unremarkable except as noted in HPI & below Physical Exam Physical Exam: Constitutional: Patient appears to be of their stated age. Patient is in no apparent distress. Patient is well-developed. Eyes: Pupils are equal round and reactive to light. Conjunctivae are normal. Anicteric sclera. Ears nose, mouth and throat: Mallampati class 1. Normal posterior oropharynx. Uvula is midline. Neck: Trachea is midline. Visual inspection is normal. Respiratory: Clear to auscultation bilaterally. No use of accessory muscles. No significant clubbing noted. Cardiovascular: Regular rate and rhythm. No murmurs. No edema. Gastrointestinal: Normal bowel sounds, soft, nontender and nondistended. No hepatosplenomegaly noted. Musculoskeletal: Pain to palpation along the right rib cage Skin: No rashes, warm dry and intact. Neurologic: No obvious focal neurological deficits seen. Psychiatric: Alert and oriented x3 with a euthymic affect. Results & Data Results & Data ([facility] [place]) Vital Signs (Past 12 Hours) Vital Signs Temp Pulse Pulse Resp BP Pulse Ox O2 Del Method 10/23/21 11:00 36.8 C 88 16 118/71 96 10/23/21 09:52 Room Air 10/23/21 08:12 36.5 C 63 17 121/83 94 Room Air 10/23/21 07:22 51 L 10/23/21 04:10 36 C L 55 L 16 110/69 100 Non-rebreather O2 Flow Rate 10/23/21 11:00 10/23/21 09:52 10/23/21 08:12 10/23/21 07:22 10/23/21 04:10 15 PG Care Time/CCT Total # of Minutes Spent Total Time Spent with Patient: Total time spent is greater than 50% in coordination of care (as documented) at patient's floor/unit and/or counseling patient: Coding Level of Care Code 99622 Subseq Hosp Care Lvl 2 Diagnoses Pneumothorax on right J93.9 Multiple rib fractures involving four or more ribs S22.49XA Asthma J45.909
--- NOTE | 2021-10-23 14:46 | Hospitalist Progress Note ---
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 He believes he was out 2-3 minutes. Denies any pre syncopal sx except sweating but attributes that to 90 degree heat. He does not drink a lot of water and does drink 2-3 beers a day. Presented to PCP office today and found to have mildly displaced R posterior ribs 7-10 along with small apical pneumothorax. Syncope and Collapse sx very possible related to dehydration and heat; however given hx of TAA as well as fatal CO in father at age [address] requires [address] of the head-unremarkable CTA-no pulmonary embolism Echo of the heart showed-LV systolic function is normal, left atrium is mildly dilated, right ventricular systolic pressure is normal, and no significant valvular heart disease Carotid doppler-no significant stenosis No arrhythmias on monitor Received intravenous fluid and denies any dizziness Appreciate cardiology input and recommendation Will have Zio patch as an outpatient Abnormal dilatation of the aorta CTA did not show aneurysmal dilatation of the ascending thoracic aorta which measures up to 4.6 cm in diameter Compared with prior CTA this shows increase in the diameter from 4.1-4.6 Further evaluation of the ascending aorta will be done by Dr. aBez as an outpatient (2) Multiple rib fractures involving four or more ribs: Plan: CTA did not show multiple rib fractures on the right side Right posterior rib fracture from 7-10 Minimally displaced Medical management with pain medications (3) Pneumothorax on right: Plan: Mildly displaced right posterior seventh through 10th rib fracture Small right apical pneumothorax Supplemental oxygen Consult pulm-appreciate input and recommendation Pain control, scheduled Tylenol, as needed Percocet Lidocaine patch Gabapentin ordered for AWSS protocol may also assist in pain management Will observe tonight and the patient is agreeable with that Will get chest x-ray tomorrow and if unremarkable he will be discharged (4) Alcohol abuse: Plan: Alcohol abuse pt drinks 2-3 beers a day per tends to be more than this, she is concerned for possible with drawal if has to be hosp >1-2 days awss protocol, prn IV ativan Gabapentin taper (5) Asthma: Plan: Asthma no acute exac continue flovent Plan DVT ppx: SCDS given recent fall, pneumo Dispo: PCU FULL CODE PCP: ARIEL Vargas 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 Case was discussed with her at bed side. Her contact number is [phone] Admission and Anticipated Discharge Date Admission Date: October 22, 2021 Subjective 10/23/2021 The patient was seen and examined in telemetry unit He complains to have severe pain in the right side of the chest with movement and coughing and breathing Denies any palpitation or shortness of breath Review of Systems Review of Systems: All systems reviewed and are unremarkable except as noted below Physical Exam Physical Exam: Sitting on a chair with some distress due to shortness of breath and chest pain Constitutional: + ill appearing and average body habitus Eyes: PERRL, conjunctivae normal, anicteric sclerae ENMT: external ear and nose normal, oropharynx normal Neck: trachea midline, no thyromegaly Respiratory: no respiratory distress Auscultation: lungs clear to auscultation bilaterally; no crackles Cardiovascular: Rate/Rhythm: regular rate and regular rhythm; not tachycardic Heart Sounds: normal S1 and normal S2; no murmur Extremities: no edema Chest (Breasts): Chest: normal inspection of chest Additional Comments: Tenderness over right chest mainly at the back at the upper reason Gastrointestinal (Abdomen): Inspection/Auscultation: normal bowel sounds; abdomen not distended Percussion/Palpation: abdomen soft; abdomen nontender Musculoskeletal: No acute arthritis involving any joint Neurologic: Alert, awake and oriented x3. No focal sensory and/or motor deficit appreciated Psychiatric: A+Ox3, euthymic affect Lymphatic: no cervical or axillary lymphadenopathy Results & Data Results & Data ([facility]) Vital Signs (Past 12 Hours) Vital Signs Temp Pulse Pulse Resp BP Pulse Ox O2 Del Method 10/23/21 11:00 36.8 C 88 16 118/71 96 10/23/21 09:52 Room Air 10/23/21 08:12 36.5 C 63 17 121/83 94 Room Air 10/23/21 07:22 51 L 10/23/21 04:10 36 C L 55 L 16 110/69 100 Non-rebreather O2 Flow Rate 10/23/21 11:00 10/23/21 09:52 10/23/21 08:12 10/23/21 07:22 10/23/21 04:10 15 Laboratory Results Short CBC 10/23/21 Range/Units 06:57 WBC 5.77 (4.8-10.8) K/ul Hgb 13.1 L (14.0-18.0) g/dl Hct 39.1 L (40.1-51.0) % Plt Count 140 (130-400) K/uL BMP 10/23/21 06:57 Sodium 140 Potassium 4.2 Chloride 109 H Carbon Dioxide 28 BUN 16 Creatinine 0.79 Glucose 97 Calcium 8.2 L Liver Function 10/23/21 Range/Units 06:57 Total Bilirubin 0.5 (0.2-1.0) mg/dl AST 23 (13-39) U/L ALT 32 (7-52) U/L Alkaline Phosphatase 50 (34-104) U/L Albumin 3.5 (3.4-5.0) gm/dl Medications Administered Current Inpatient Medications Acetaminophen (Acetaminophen 325 Mg Tab) 650 mg PO Q4H PRN PRN Reason: Pain or Fever Stop: 11/21/21 16:35 Last Admin: 10/23/21 05:58 Dose: 650 mg Acetaminophen (Acetaminophen 500 Mg Tab) 500 mg PO QID AMANUEL Stop: 11/21/21 16:35 Last Admin: 10/23/21 07:36 Dose: 500 mg Al Hydrox/Mg Hydrox/Simethicone (Aluminum/Magnesium Susp 30 Ml Udc) 15 ml PO Q4H PRN PRN Reason: Dyspepsia Stop: 11/21/21 16:35 Albuterol (Albut/Ipratrop 3mg/0.5mg Neb 3 Ml Vial) 3 ml NEB QIDR PRN; Protocol PRN Reason: wheezing Stop: 11/21/21 18:59 Fluticasone Propionate (Fluticasone Hfa 110mcg Inhaler) 1 puffs INH BID AMANUEL Stop: 11/21/21 20:59 Last Admin: 10/23/21 07:37 Dose: 1 puffs Gabapentin (Gabapentin 600 Mg Tab) 600 mg PO Q8H AMANUEL Stop: 10/24/21 06:01 Gabapentin (Gabapentin 600 Mg Tab) 600 mg PO Q12H [facility] Stop: 10/25/21 06:01 Gabapentin (Gabapentin 600 Mg Tab) 600 mg PO Q24H [facility] Stop: 10/26/21 06:01 Lidocaine (Lidocaine 5% 1 Patch) 1 patch TD QAM [facility] Stop: 11/21/21 16:44 Last Admin: 10/23/21 07:34 Dose: 1 patch Lorazepam (Lorazepam 1 Mg Tab) 1 mg PO ONE PRN; Protocol PRN Reason: EtoH Withdrawal AWSS 6,7,8,9,10 Magnesium Hydroxide (Magnesium Hydroxide Susp 30 Ml Udc) 30 ml PO Q12H PRN PRN Reason: Constipation Stop: 11/21/21 16:35 Miscellaneous (Remove Lidoderm Patch) 1 each N/A DAILY@2100 [facility] Stop: 11/21/21 20:59 Last Admin: 10/22/21 19:39 Dose: 1 each Ondansetron HCl (Ondansetron Inj 2 Mg/Ml 2 Ml Vial) 4 mg IV Q6H PRN PRN Reason: Nausea Stop: 11/21/21 16:35 Oxycodone HCl (Oxycodone Hcl Ir 5 Mg Tab (Immediate Release)) 5 mg PO Q4H PRN PRN Reason: MODERATE Pain (4,5,6) & Pre PT Stop: 11/05/21 16:35 Oxycodone HCl (Oxycodone Hcl Ir 5 Mg Tab (Immediate Release)) 10 mg PO Q4H PRN PRN Reason: SEVERE Pain (7,8,9,10) Stop: 11/05/21 16:35 Polyethylene Glycol (Polyethylene (Miralax) 17 Gm Pack) 17 gm PO DAILY PRN PRN Reason: Constipation Stop: 11/21/21 16:35
[2021-10-23] MEDS ORDERED: LACTULOSE SYRUP 30 GM/45 ML UDP PO STA (19:50)
[2021-10-24 07:08] LABS: Basophils # (auto) 0.02 K/uL (0-0.2); Basophils % (auto) 0.3 %; Eosinophils # (auto) 0.26 K/uL (0-0.50); Eosinophils % (auto) 3.8 %; Hemoglobin 14.1 g/dl (14.0-18.0); Immature Granulocytes # (auto) 0.05 K/uL (0.00-0.02); Immature Granulocytes % (auto) 0.7 %; Lymphocytes % (auto) 16.2 %; Mean Corpuscular Hemoglobin 29.1 pg (25.0-34.0); Mean Corpuscular Hgb Conc 33.6 g/dL (32.0-36.0); Mean Corpuscular Volume 86.8 fL (80.0-100.0); Monocytes # (auto) 0.36 K/uL (0.24-0.82); Monocytes % (auto) 5.3 %; Neutrophils # (auto) 4.98 K/uL (1.4-6.5); Neutrophils % (auto) 73.7 %; Platelet Count 156 K/uL (130-400); RDW Coefficient of Variation 12.8 % (11.5-14.5); RDW Standard Deviation 40.1 fL (36.4-46.3); Red Blood Count 4.84 M/uL (4.63-6.08); White Blood Count 6.77 K/ul (4.8-10.8)
[2021-10-24 07:51] LABS: BUN Creatinine Ratio 15.3 (10-20); Calcium 8.7 mg/dl (8.5-10.1); Creatinine Clr Calc Pharmacy 73.5 ml/min; Est GFR (African American) 106.7 ml/min; Est GFR (Non-African American) 92.1 ml/min; Potassium 4.1 mmol/L (3.5-5.1)
[2021-10-24] MEDS: GABAPENTIN 600 MG TAB PO SCH (08:01)
[2021-10-24] MEDS: FLUTICASONE HFA 110MCG INHALER INH SCH (08:01)
[2021-10-24] MEDS: ACETAMINOPHEN 500 MG TAB PO SCH (08:02)
[2021-10-24] MEDS: LIDOCAINE 5% 1 PATCH TD SCH (08:27)
--- NOTE | 2021-10-24 09:48 | XRay Report ---
XR chest 2V PA/lateral HISTORY: 66 years-old Male f/u ptx follow-up study in a patient with a pneumothorax COMPARISON: Chest radiograph 10/23/2021 TECHNIQUE: PA and lateral views of the chest FINDINGS: The previously described tiny right apical pneumothorax is no longer identified. Cardiac silhouette i s upper limits of normal in size. Right posterior seventh through 10th rib fractures are redemonstrat ed. Small pleural effusions with mild linear bibasilar densities. IMPRESSION: 1. The previously noted trace right apical pneumothorax is no longer identified by radiography. 2. Small pleural effusions with mild bibasilar atelectasis. 3. Right posterior seventh through 10th rib fractures redemonstrated. ACT 112: Negative or not required by law. The above report was generated using voice recognition software. It may contain grammatical, syntax o r spelling errors. Electronically signed by: Janes Oconnor M.D. 10/24/2021 9:47 AM
--- NOTE | 2021-10-24 10:19 | Hospitalist Progress Note ---
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 He believes he was out 2-3 minutes. Denies any pre syncopal sx except sweating but attributes that to 90 degree heat. He does not drink a lot of water and does drink 2-3 beers a day. Presented to PCP office today and found to have mildly displaced R posterior ribs 7-10 along with small apical pneumothorax. Syncope and Collapse sx very possible related to dehydration and heat; however given hx of TAA as well as fatal FL in father at age [address] requires [address] investigation [address] of the head-unremarkable CTA-no pulmonary embolism Echo of the heart showed-LV systolic function is normal, left atrium is mildly dilated, right ventricular systolic pressure is normal, and no significant valvular heart disease Carotid doppler-no significant stenosis No arrhythmias on monitor Received intravenous fluid and denies any dizziness Appreciate cardiology input and recommendation Will have Zio patch as an outpatient Abnormal dilatation of the aorta CTA did not show aneurysmal dilatation of the ascending thoracic aorta which measures up to 4.6 cm in diameter Compared with prior CTA this shows increase in the diameter from 4.1-4.6 Further evaluation of the ascending aorta will be done by Dr. Baez as an outpatient Reviewed with Dr. Shelton-surgical recommendation of the aorta after reviewing the results with the radiologist (2) Multiple rib fractures involving four or more ribs: Plan: CTA did not show multiple rib fractures on the right side Right posterior rib fracture from 7-10 Minimally displaced Medical management with pain medications Will be discharging home this afternoon with pain medications (3) Pneumothorax on right: Plan: Mildly displaced right posterior seventh through 10th rib fracture Small right apical pneumothorax Supplemental oxygen Consult pulm-appreciate input and recommendation Pain control, scheduled Tylenol, as needed Percocet Lidocaine patch Gabapentin ordered for AWSS protocol may also assist in pain management Will observe tonight and the patient is agreeable with that Will get chest x-ray tomorrow and if unremarkable he will be discharged Repeat chest x-ray did not show any evidence of pneumothorax (4) Alcohol abuse: Plan: Alcohol abuse pt drinks 2-3 beers a day per tends to be more than this, she is concerned for possible with drawal if has to be hosp >1-2 days awss protocol, prn IV ativan Gabapentin taper (5) Asthma: Plan: Asthma no acute exac continue flovent Plan DVT ppx: SCDS given recent fall, pneumo Dispo: PCU FULL CODE PCP: ARIEL Vargas 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 Her contact number is [phone] Admission and Anticipated Discharge Date Admission Date: October 22, 2021 Subjective 10/23/2021 The patient was seen and examined in telemetry unit He complains to have severe pain in the right side of the chest with movement and coughing and breathing Denies any palpitation or shortness of breath 10/24/2021 The patient was seen and examined in telemetry unit He has been feeling a lot better and denies any significant symptoms except pain with movement and breathing at the back of the upper chest on the right side Review of Systems Review of Systems: All systems reviewed and are unremarkable except as noted below Physical Exam Physical Exam: Sitting on a chair with some distress due to shortness of breath and chest pain Constitutional: + ill appearing and average body habitus Eyes: PERRL, conjunctivae normal, anicteric sclerae ENMT: external ear and nose normal, oropharynx normal Neck: trachea midline, no thyromegaly Respiratory: no respiratory distress Auscultation: lungs clear to auscultation bilaterally; no crackles Cardiovascular: Rate/Rhythm: regular rate and regular rhythm; not tachycardic Heart Sounds: normal S1 and normal S2; no murmur Extremities: no edema Chest (Breasts): Chest: normal inspection of chest Gastrointestinal (Abdomen): Inspection/Auscultation: normal bowel sounds; abdomen not distended Percussion/Palpation: abdomen soft; abdomen nontender Musculoskeletal: No acute arthritis in any joint Neurologic: plantar reflexes intact bilaterally and moves all extremities; no focal motor deficits Psychiatric: A+Ox3, euthymic affect Lymphatic: no cervical or axillary lymphadenopathy Results & Data Results & Data ([facility]) Vital Signs (Past 12 Hours) Vital Signs Temp Pulse Pulse Resp BP Pulse Ox Pulse Ox 10/24/21 07:43 58 L 10/24/21 07:26 36.8 C 74 20 132/83 96 10/24/21 02:55 36.5 C 64 16 113/74 96 10/24/21 00:00 97 10/23/21 23:14 36.5 C 66 16 109/35 L 97 10/23/21 22:56 64 O2 Del Method O2 Del Method 10/24/21 07:43 10/24/21 07:26 10/24/21 02:55 Room Air 10/24/21 00:00 Room Air 10/23/21 23:14 Room Air 10/23/21 22:56 Laboratory Results Short CBC 10/24/21 Range/Units 06:52 WBC 6.77 (4.8-10.8) K/ul Hgb 14.1 (14.0-18.0) g/dl Hct 42.0 (40.1-51.0) % Plt Count 156 (130-400) K/uL BMP 10/24/21 06:52 Sodium 140 Potassium 4.1 Chloride 106 Carbon Dioxide 30 BUN 13 Creatinine 0.85 Glucose 120 H Calcium 8.7
--- NOTE | 2021-10-24 12:09 | Communication Note ---
Date of Service: October 24, 2021 Patient's CTA reviewed with radiology, Dr Jaramillo yesterday. He remeasured the ascending aorta and made an addendum to the CTA report. "The ascending thoracic aorta measures up to 4.4 cm in diameter. This previously measured 4.3 cm in the 08/07/2021 examination." This is reassuring, will plan for repeat CTA as outpt in 6 months. I will arrange an outpatient Zio Patch monitor.
--- NOTE | 2021-10-24 16:36 | Discharge Summary ---
Date of Service October 24, 2021 Admission HPI Per Admitting Provider This is a 66 yr old M who has a significant PMH of asthma, thoracic aortic aneurysm, left acoustic neuroma who comes to ER at referral of PCP due to fall, loss of consciousness that occurred 2 days ago with subsequent right-sided posterior rib fractures and pneumothorax. He fell off a hay wagon on Monday. His was driving and he was on the back. It was very hot out and he passed out and had LOC. He fell off of hay wagon onto this right side. It was approx 5 ft. He doesn't remember hitting the ground. stopped tractor and found him flat on his back with his eyes open and breathing. She went and grabbed a gator to pick him up and when she came back he was already sitting up. He thinks he was out about 2-3minutes. He was aware of events before and after the syncopal episode. He denies loss of bowel and bladder at the time. He denies any prodromal symptoms of lightheadedness, dizziness, chest pain, palpitations, nausea or sweating. He states it was very hot out that day and he was doing a lot of sweating but denies any atiya diaphoresis. He developed R sided chest pain yesterday. He opted to see PCP today. An xray was performed which showed multiple rib fxs wih concern for pneumothorax. He also complains of R lateral and posterior thorax pain. Pain is worse with movement, feels like a spasm, comes and goes with movement and appears to have worsened overnight. He denies f/c/s, dizziness, lightheaded, chest pain, sob, n/v/d, abd pain, change in bowel or urinary habit. He denies prior hx of LOC. He denies prior hx of heart disease. His father passed of a fatal SD at age 58. He recenly lost his brother to brain cancer at age 68. Admission Exam Per Admitting Provider GENERAL: Alert and oriented x3. NAD, on RA. HEENT: No pallor, no icterus. Pupils equal, round and reactive to light. Oral mucosa moist. NECK: No JVD, no neck masses. HEART: S1 and S2 heard. Regular rate and rhythm. No murmur, no gallop. RESPIRATORY SYSTEM: Normal AP diameter. No accessory muscle use. No wheezing, no crackles. ABDOMEN: Soft, bowel sounds present, nontender, no distention. CENTRAL NERVOUS SYSTEM: No facial droop. Speech is clear. Obeys simple commands. Moves extremities. EXTREMITIES: No edema, no erythema seen. Tender Rt mid and lower back, no bruise/erythema/swelling noted. Principal Diagnosis Syncope, s/p fall with multiple rib fracture on the right side, thoracic ascending aorta aneurysm Discharge Exam Sitting on a chair with some distress due to shortness of breath and chest pain Constitutional + ill appearing and average body habitus Eyes PERRL, conjunctivae normal, anicteric sclerae ENMT external ear and nose normal, oropharynx normal Neck trachea midline, no thyromegaly Respiratory no respiratory distress Auscultation: lungs clear to auscultation bilaterally; no crackles Cardiovascular Rate/Rhythm: regular rate and regular rhythm; not tachycardic Heart Sounds: normal S1 and normal S2; no murmur Extremities: no edema Chest (Breasts) Chest: normal inspection of chest Gastrointestinal (Abdomen) Inspection/Auscultation: normal bowel sounds; abdomen not distended Percussion/Palpation: abdomen soft; abdomen nontender Neurologic plantar reflexes intact bilaterally and moves all extremities; no focal motor deficits Psychiatric A+Ox3, euthymic affect Lymphatic no cervical or axillary lymphadenopathy Discharge Data Allergies Allergy/AdvReac Type Severity Reaction Status Date / Time Penicillins Allergy Unknown . Verified 08/07/21 15:28 Consultations 10/22/21 13:29 ED Decision to Admit Stat 10/22/21 13:35 Consult Pulmonology Routine 10/22/21 16:36 Consult Cardiology Routine Ordered Studies 10/22/21 13:58 CT angio chest PE protocol Stat CT head/brain wo con Stat Carotid duplex [US carotid doppler BI] Routine Hospital Course (1) Syncope and collapse: This is a 66 yr old M who has a significant PMH of asthma, thoracic aortic aneurysm, left acoustic neuroma who comes to ER at referral of PCP due to fall, loss of consciousness that occurred 2 days ago with subsequent right-sided posterior rib fractures and pneumothorax 66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 He believes he was out 2-3 minutes. Denies any pre syncopal sx except sweating but attributes that to 90 degree heat. He does not drink a lot of water and does drink 2-3 beers a day. Presented to PCP office today and found to have mildly displaced R posterior ribs 7-10 along with small apical pneumothorax. Syncope and Collapse sx very possible related to dehydration and heat; however given hx of TAA as well as fatal SD in father at age 57 requires [address] investigation [address] of the head-unremarkable CTA-no pulmonary embolism Echo of the heart showed-LV systolic function is normal, left atrium is mildly dilated, right ventricular systolic pressure is normal, and no significant valvular heart disease Carotid doppler-no significant stenosis No arrhythmias on monitor Received intravenous fluid and denies any dizziness Appreciate cardiology input and recommendation Will have Zio patch as an outpatient Abnormal dilatation of the aorta CTA did not show aneurysmal dilatation of the ascending thoracic aorta which measures up to 4.6 cm in diameter Compared with prior CTA this shows increase in the diameter from 4.1-4.6 Further evaluation of the ascending aorta will be done by Dr. Baez as an outpatient Reviewed with Dr. Shelton-surgical recommendation of the aorta after reviewing the results with the radiologist (2) Multiple rib fractures involving four or more ribs: CTA did not show multiple rib fractures on the right side Right posterior rib fracture from 7-10 Minimally displaced Medical management with pain medications Will be discharging home this afternoon with pain medications (3) Pneumothorax on right: Mildly displaced right posterior seventh through 10th rib fracture Small right apical pneumothorax Supplemental oxygen Consult pulm-appreciate input and recommendation Pain control, scheduled Tylenol, as needed Percocet Lidocaine patch Gabapentin ordered for AWSS protocol may also assist in pain management Will observe tonight and the patient is agreeable with that Will get chest x-ray tomorrow and if unremarkable he will be discharged Repeat chest x-ray did not show any evidence of pneumothorax (4) Alcohol abuse: Alcohol abuse pt drinks 2-3 beers a day per tends to be more than this, she is concerned for possible with drawal if has to be hosp >1-2 days awss protocol, prn IV ativan Gabapentin taper (5) Asthma: Asthma no acute exac continue flovent Plan DVT ppx: SCDS given recent fall, pneumo Dispo: PCU FULL CODE PCP: ARIEL Vargas 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 Her contact number is [phone] Total Time Total Time Spent Total Time Spent (In Minutes): 35 Minutes Discharge Plan Discharge Items Patient Disposition: Home - Self-Care Reason For Visit: FALL, RIB FX, SMALL APICAL PNEUMOTHORAX Discharge Diagnosis: Syncope, s/p fall with multiple rib fracture on the right side, thoracic ascending aorta aneurysm Condition on Discharge: Fair Activity: Resume your previous activity Non-emergency contact: Primary Care Provider Call non-emergency contact if: you have any medication questions and your symptoms worsen Follow-up/Referrals: Loreto Chapman CRNP [Primary Care Provider] - (Your doctor's office will call with an appointment within 7 days) Diet: Heart Healthy Addtl Attending Provider Instructions: Please take precautions to avoid falls Keep appointments with your healthcare providers You will need to have a Zio patch placement from your doctor's office Please take it easy for the next few days Try to use less of narcotics pain medication Try to quit drinking of alcohol Pending Studies at Discharge: No Stand-Alone Forms: [facility] [place], Smoking Cessation Medications and DC Order Prescriptions: New gabapentin 600 mg Tablet 600 mg PO UD Qty: 3 0RF Rx Instructions: 1 tablet 2 times daily for today and 1 tablet tomorrow lidocaine 5 % Adhesive Patch,Medicated 1 patch transdermal QAM 15 Days Qty: 15 0RF oxycodone 5 mg Tablet 5 mg PO Q6HWA PRN (Reason: pain) 5 Days Qty: 14 0RF Continued fluticasone propionate [Flovent HFA] 110 mcg/actuation HFA aerosol inhaler 1 puff INHALATION BID Discharge Orders: Discharge Order (Routine); Ordered 10/24/21 Ordered By: Dbebie Gonzalez Admission Data Admit Date/Time: 10/22/21 13:59 Attending Provider: Debbie Gonzalez Admit Provider: Yonatan Moctezuma Primary Care Provider: Loreto Chapman Other Providers: Yonatan Moctezuma ; Pratik Correa ; Mohinder Alberto Other Interventions: Discharge Summary Assessment (RN) Last Done: 10/24/21 10:20
[2021-10-24] MEDS ORDERED: GABAPENTIN 600 MG TAB PO SCH (18:00)
[2021-10-26] MEDS ORDERED: GABAPENTIN 600 MG TAB PO SCH (06:00)
== END 2021-10-24 12:00 | disposition home or self-care (01) | DRG 200 ==
LOC: ED 10:38 → 2S 13:59 → SUATTDRO 13:59 → 2S 16:19